=== PATIENT | female | born 1930 | race Caucasian/White ===

== ENCOUNTER 2018-02-25 14:26 | Outpatient (CLI) | payer MEDICARE ==
--- NOTE | 2018-02-25 15:51 | RAD ---
THORACIC SPINE 3 VIEWS HISTORY: Severe back pain. COMPARISON: None. FINDINGS: There is low-grade mild levoscoliosis of the thoracolumbar junction. Moderate vascular calcification s. The left-sided paraspinal soft tissues were unremarkable. IMPRESSION: 1. No acute fracture. 2. Mild levoscoliosis of the thoracolumbar junction. POS: [facility]
--- NOTE | 2018-02-25 16:01 | RAD ---
LUMBAR SPINE 4 VIEWS: HISTORY: Severe low back pain. COMPARISON: CT 05/17/17. FINDINGS: Mild levoscoliosis of the lumbar spine. Prior ventral hernia repair. Advanced disk arthropathy on t he left at L4-5 and L5-S1. Moderate vascular calcifications of the aorta. Mild narrowing at L4-5 sinus process interspace. IMPRESSION: Moderate spondylosis. POS: [facility]
== END 2018-02-25 14:27 | disposition home or self-care (01) ==
LOC: MADRAD 14:26
PROVIDERS: ATTEND General Practice
DX: M54.5 Low back pain (principal); M47.896 Other spondylosis, lumbar region; M41.9 Scoliosis, unspecified
CPT/HCPCS: 72072; 72110

== ENCOUNTER 2018-03-17 10:08 | Emergency (ER) | payer MEDICARE ==
[2018-03-17 10:57] LABS: Bilirubin Negative (Negative); Blood, Urine Negative (Negative); Clarity Clear (Clear); Glucose, Urine (Dipstick) Negative (Negative); Leukocyte Trace (Negative); Nitrite Positive (Negative); Protein, Urine (Dipstick) Negative (Neg-Trace); Urobilinogen 0.2 mg/dL (0.2-1.0)
[2018-03-17 11:05] LABS: RBC/HPF None Seen HPF (0-3)
[2018-03-17 11:06] LABS: Bacteria/HPF 3+ HPF (None Seen); Transitional Epithelial 0-3 HPF (0-3)
[2018-03-17 11:33] LABS: #Basophils 0.1 thou/uL (0.0-0.2); #Eosinphils 0.4 thou/uL (0.0-0.7); #Lymphocytes 1.9 thou/uL (1.20-3.40); #Monocytes 0.7 thou/uL (0.11-0.59); %Basophils 1.5 % (0.0-1.0); %Lymphocytes 23.1 % (21.0-51.0); %Monocytes 8.7 % (0.0-10.0); %Neutrophils 61.7 % (42.0-75.0); Hemoglobin 12.8 g/dL (12.0-16.0); Mean Corpuscular HGB CONC 33.6 g/dL (32.0-36.0); Mean Corpuscular Hemoglobin 31.8 pg (27.0-31.0); Mean Corpuscular Volume 94.5 fL (78.0-98.0); Mean Platelet Volume 7.8 fL (7.4-10.4); Platelet Count 168 thou/uL (130-400); RBC Distribution Width 12.1 % (11.5-14.5); Red Blood Cell (RBC) Count 4.02 mill/uL (4.20-5.40); White Blood Cell (WBC) Count 8.1 thou/uL (4.8-10.8)
[2018-03-17 11:38] LABS: Prothrombin Time 13.2 SEC (12.0-14.7)
[2018-03-17 11:48] LABS: ALT (SGPT) 48 U/L (8-55); AST (SGOT) 58 U/L (5-34); Albumin 3.6 g/dL (3.4-4.8); Alkaline Phosphatase 128 U/L (40-150); Anion Gap 15 mmol/L (10-20); BUN (Urea Nitrogen) 22 mg/dL (9.8-20.1); Bilirubin, Total 0.9 mg/dL (0.2-1.2); Calc. Creatinine Clearance 0 mL/min (70-130); Calcium 9.9 mg/dL (7.8-10.44); Carbon Dioxide 24 mmol/L (23-31); Chloride 107 mmol/L (98-107); Estimated GFR-MDRD 45; Globulin 4.1 g/dL (2.4-3.5); Glucose 140 mg/dL (83-110); Potassium 3.9 mmol/L (3.5-5.1); Protein, Total 7.7 g/dL (6.0-8.3); Sodium 142 mmol/L (136-145)
--- NOTE | 2018-03-17 12:12 | CT ---
CT CERVICAL SPINE NONCONTRAST: HISTORY: 87-year-old female status post acute cervical trauma from fall. FINDINGS: There are no jumped or perched facets. There is no evidence of acute fracture. The vertebral body h eights are maintained. There is no prevertebral soft tissue swelling. There are degenerative disc c hanges and facet osteoarthrosis. IMPRESSION: 1) Cervical spondylosis. 2) No evidence of acute fracture or acute traumatic subluxation. [facility] POS: [facility]
--- NOTE | 2018-03-17 12:20 | CT ---
HEAD CT WITHOUT CONTRAST: Date: 03/17/18 HISTORY: Status post fall. Landed on back of head. Dizziness. COMPARISON: None. FINDINGS: No parenchymal hemorrhage. No extra-axial hematoma. No midline shift. Basilar cisterns are patent. Ag e-appropriate atrophy. Cortical levin-white matter differentiation preserved. Ventricles and sulci are patent and symmetric. White matter hypodensities due to chronic small vessel ischemic change. [place] te aeration of the sinuses and mastoid air cells. Calvarium is intact. Minimal induration of the post erior scalp at the level of the occiput. IMPRESSION: No intracranial post-traumatic sequelae. POS: [facility]
--- NOTE | 2018-03-17 12:48 | CT ---
CT CHEST WITH IV CONTRAST: CT THORACIC SPINE NONCONTRAST: HISTORY: Fall. Chest and sternal pain. FINDINGS: The lungs are well inflated with scattered areas of scarring and calcified granulomata. No evidence of pneumothorax or pleural fluid. Lack of IV contrast limits evaluation of the soft tissues. No bulky mediastinal adenopathy. Promine nt calcification throughout the arterial strictures. There is buckling of the anterior cortex of the upper sternum, approximately 1.5 cm inferior to the s ternomanubrial junction. No adjacent hematoma. Prominent degenerative changes throughout the thorac ic spine without acute fracture or dislocation visible. IMPRESSION: 1. Nondisplaced upper sternal fracture without evidence of complication. 2. Atherosclerosis. POS: [facility]
[2018-03-17] MEDS ORDERED: Ketorolac Tromethamine 30 MG/ML VIAL ONE (13:52)
== END 2018-03-17 15:00 | disposition short-term general hospital (02) ==
LOC: MADERS 10:08
DX: S22.20XA Unspecified fracture of sternum, initial encounter for closed fracture (principal); S00.03XA Contusion of scalp, initial encounter; E11.9 Type 2 diabetes mellitus without complications; E78.5 Hyperlipidemia, unspecified; I10 Essential (primary) hypertension; Z79.4 Long term (current) use of insulin; Z79.899 Other long term (current) drug therapy; W01.0XXA Fall on same level from slipping, tripping and stumbling without subsequent striking against object, initial encounter
CPT/HCPCS: 36416; 70450; 71250; 72125; 80053; 81003; 81015; 85025; 85610; 93005; 96374; 36415-59; J1885

== ENCOUNTER 2018-03-29 11:32 | Outpatient (CLI) | payer MEDICARE ==
--- NOTE | 2018-03-29 13:46 | RAD ---
TWO VIEWS OF THE STERNUM: Indication: History of sternal fracture. Comparison: Non contrast CT of the chest, 03-17-18. FINDINGS: The nondisplaced sternal fracture on the comparison CT has undergone some interval displacement. The proximal sternal body fracture is now displaced approximately 3 mm posterior in relation to the mid t o distal sternal body fracture fragment. IMPRESSION: Interval mild displacement of the sternal body fracture. POS: [facility]
--- NOTE | 2018-03-29 13:49 | RAD ---
PA AND LATERAL CHEST: INDICATIONS: History of sternal fracture. COMPARISON: Prior CT thorax dated 03/17/2018. FINDINGS: Heart size is upper limits of normal. There are scattered calcified granuloma within both lungs. No confluent air space opacity, pleural fluid, or pneumothorax is evident. The patient's known sternal oblique fracture is not well detailed. Vascular calcification of the thoracic aorta is similar appe aring. IMPRESSION: No acute abnormality. POS: [facility]
== END 2018-03-29 11:33 | disposition home or self-care (01) ==
LOC: MADRAD 11:32
PROVIDERS: ATTEND General Practice
DX: S22.22XD Fracture of body of sternum, subsequent encounter for fracture with routine healing (principal)
CPT/HCPCS: 71046; 71120